=== PATIENT | female | born 2000 | race Caucasian/White ===

== ENCOUNTER 2025-04-23 23:50 | Inpatient (IN) | payer BC, SELFPAY ==
[2025-04-23 15:17] VITALS: BMI 21.9
[2025-04-23 15:19] VITALS: BP 151/95
[2025-04-23 15:37] LABS: Hematocrit 39.7 % (37.0-47.0); Hemoglobin 13.7 g/dL (12.0-16.0); Mean Corp Hgb Conc. 34.5 g/dL (33.0-37.0); Mean Corpuscular Volume 86.3 fL (81.0-99.0); Nucleated Red Blood Cells % 0 %; Platelet Count 226 10^3/uL (130-400); Red Cell Dist. Width 11.9 % (11.5-14.5)
[2025-04-23 15:58] LABS: HCG, Serum Qualitative Screen Negative
[2025-04-23 16:00] LABS: ALT (SGPT) 16 U/L (0-35); AST (SGOT) 22 U/L (14-36); Albumin 4.7 g/dl (3.5-5.0); Alkaline Phosphatase 63 U/L (38-126); Blood Urea Nitrogen 10 mg/dl (7-17); Calcium 10.3 mg/dl (8.4-10.2); Carbon Dioxide 24 mmol/L (22-30); Chloride 100 mmol/L (98-107); Glucose 101 mg/dl (70-99); Lipase 122 U/L (23-300); Potassium 4.2 mmol/L (3.5-5.1); Sodium 130 mmol/L (135-145); Total Protein 8.0 g/dl (6.3-8.2); eGFR > 60.00
[2025-04-23] MEDS: OMNIPAQUE 50 ML PO (19:00)
[2025-04-23] MEDS: NSS 1000 IV (19:00)
--- NOTE | 2025-04-23 19:07 | ED.GENMED ---
History of Present Illness
<Sadia Tate PA-C - Last Filed: 04/23/25 23:31>
General
Chief Complaint: Abdominal Symptoms
Source: patient
Exam Limitations: none
Time Seen by Provider: 04/23/25 18:45
History of Present Illness
History of Present Illness:
24yoF with a history of asthma presenting with her parents for evaluation of abdominal pain. She initially started with a burning pain in her upper abdomen around 8:30 AM this morning. Pain has been constant throughout the day and has now migrated
to the right lower quadrant and is described as shooting. She was seen by her PCP today and was sent to the ED to rule out appendicitis. Patient reports nausea but is otherwise asymptomatic and she denies any vomiting, diarrhea, constipation,
dysuria. Last menstrual period was 1 week ago. No prior abdominal surgeries.
Phy Exam
<Sadia Tate PA-C - Last Filed: 04/23/25 23:31>
General Physical Exam
General Presentation: well appearing and no apparent distress
General Skin: warm and dry
General Habitus: normal
General Mental: alert
ENT Exam
ENT Exam: normocephalic
Pulmonary Exam
Pulmonary Exam: no respiratory distress
Gastrointestinal Exam
Gastrointestinal Exam: soft, non distended and other (+Tenderness in RLQ and suprapubic regions. Abdomen soft, non-distended. )
Neurological Exam
Neurological Exam: alert
[place] Coma Scale
Eye Opening: Spontaneous
Verbal Response: Oriented
Motor Response: Obeys Commands
GCS Total Score: 15
Skin Exam
Skin Exam: normal color and warm/dry
Psychiatric Exam
Psychiatric Exam: normal mood/affect
<Meng Oneal MD - Last Filed: 04/23/25 23:46>
[place] Coma Scale
GCS Total Score: 15
Course
<Sadia Tate PA-C - Last Filed: 04/23/25 23:31>
Orders/Labs/Results
Orders:
Orders
04/23/25 15:21
Straight cath- Treatment ONCE
Test Result ONCE
04/23/25 15:27
Complete Blood Count/With Diff Urgent
Comprehensive Metabolic Panel Urgent
HCG, Serum Qualitative Screen Urgent
Comment: Notify provider if positive test present
Lipase Urgent
04/23/25 19:04
CT Abd/pel W Iv And Oral Contr Urgent
Comment:
Reason For Exam: RLQ pain
0.9% Sodium Chloride 1000 ml [Nss] 1,000 ml IV BOLUS
Iohexol [Omnipaque] See Protocol PO NOW STA
Ketorolac [Toradol] 15 mg IV NOW STA
04/23/25 19:46
Urinalysis Reflex To Culture Urgent
Date Specimen was Collected: 04/23/25
Time Specimen was Collected: 19:14
Urine Microscopic Reflex Cult Urgent
04/23/25 22:18
Pelvis & Transvaginal US [US Pelvis W Transvag Combined] Urgent
Comment:
Reason For Exam: RLQ pain, abnormal CT
04/23/25 22:28
HYDROmorphone [Dilaudid] 0.5 mg IV NOW STA
04/23/25 22:31
Piperacillin/Tazo 3.375 Gram [Zosyn] 3.375 gram in 50 ml IV NOW
Abnormal Lab Results
04/23/25 04/23/25
15:27 19:46
WBC 13.3 H 10^3/uL
(4.8-10.8)
Absolute Neuts (auto) 10.3 H 10^3/uL
(1.4-6.5)
Neutrophils % 77.5 H %
(42.2-75.2)
Lymphocytes % 13.8 L %
(20.5-51.1)
Sodium 130 L mmol/L
(135-145)
Creatinine 0.5 L mg/dL
(0.6-1.0)
Glucose 101 H mg/dl
(70-99)
Calcium 10.3 H mg/dl
(8.4-10.2)
Urine Ketones 2+ A
(Negative)
Ur Occult Blood Reflex 2+ A
(Negative)
Urine RBC 3-6 A /HPF
(0-2)
04/23/25 15:27
04/23/25 15:27
Vital Signs
Initial and Last Documented VS:
Initial Vital Signs
Temp Pulse Resp BP Pulse Ox
36.9 C 97 18 151/95 98
04/23/25 15:19 04/23/25 15:19 04/23/25 15:19 04/23/25 15:19 04/23/25 15:19
Last Documented Vital Signs
Temp Pulse Resp BP Pulse Ox
37.2 C 79 16 134/76 100
04/23/25 19:32 04/23/25 20:00 04/23/25 20:00 04/23/25 19:32 04/23/25 20:00
<Meng Oneal MD - Last Filed: 04/23/25 23:46>
Orders/Labs/Results
Orders:
Orders
04/23/25 15:21
Straight cath- Treatment ONCE
Test Result ONCE
04/23/25 15:27
Complete Blood Count/With Diff Urgent
Comprehensive Metabolic Panel Urgent
HCG, Serum Qualitative Screen Urgent
Comment: Notify provider if positive test present
Lipase Urgent
04/23/25 19:04
CT Abd/pel W Iv And Oral Contr Urgent
Comment:
Reason For Exam: RLQ pain
0.9% Sodium Chloride 1000 ml [Nss] 1,000 ml IV BOLUS
Iohexol [Omnipaque] See Protocol PO NOW STA
Ketorolac [Toradol] 15 mg IV NOW STA
04/23/25 19:46
Urinalysis Reflex To Culture Urgent
Date Specimen was Collected: 04/23/25
Time Specimen was Collected: 19:14
Urine Microscopic Reflex Cult Urgent
04/23/25 22:18
Pelvis & Transvaginal US [US Pelvis W Transvag Combined] Urgent
Comment:
Reason For Exam: RLQ pain, abnormal CT
04/23/25 22:28
HYDROmorphone [Dilaudid] 0.5 mg IV NOW STA
04/23/25 22:31
Piperacillin/Tazo 3.375 Gram [Zosyn] 3.375 gram in 50 ml IV NOW
Abnormal Lab Results
04/23/25 04/23/25
15:27 19:46
WBC 13.3 H 10^3/uL
(4.8-10.8)
Absolute Neuts (auto) 10.3 H 10^3/uL
(1.4-6.5)
Neutrophils % 77.5 H %
(42.2-75.2)
Lymphocytes % 13.8 L %
(20.5-51.1)
Sodium 130 L mmol/L
(135-145)
Creatinine 0.5 L mg/dL
(0.6-1.0)
Glucose 101 H mg/dl
(70-99)
Calcium 10.3 H mg/dl
(8.4-10.2)
Urine Ketones 2+ A
(Negative)
Ur Occult Blood Reflex 2+ A
(Negative)
Urine RBC 3-6 A /HPF
(0-2)
04/23/25 15:27
04/23/25 15:27
Vital Signs
Initial and Last Documented VS:
Initial Vital Signs
Temp Pulse Resp BP Pulse Ox
36.9 C 97 18 151/95 98
04/23/25 15:19 04/23/25 15:19 04/23/25 15:19 04/23/25 15:19 04/23/25 15:19
Last Documented Vital Signs
Temp Pulse Resp BP Pulse Ox
37.2 C 79 16 134/76 100
04/23/25 19:32 04/23/25 20:00 04/23/25 20:00 04/23/25 19:32 04/23/25 20:00
<Sadia Tate PA-C - Last Filed: 04/23/25 23:31>
MDM/Problems Addressed
Differential Diagnosis Includes:
24yoF here with RLQ pain. Started with upper abd pain this AM which has migrated. Sent in by PCP to r/o appendicitis. VSS. She is non-toxic appearing. Focal RLQ tenderness on exam. Differential diagnosis includes but is not limited to: appendicitis,
mesenteric adenitis, ovarian cyst, kidney stone
Initial ED plan: Workup initiated in triage. Leukocytosis noted with a WBC of 13.3. Sodium 130. Renal function normal. HCG negative. Will check UA and CT abdomen. IV Toradol and fluid bolus for symptoms.
<Sadia Tate PA-C - Last Filed: 04/23/25 23:31>
*Pulse Oximetry
SaO2: 98
Oxygen Mode of Delivery: Room air
Patient hypoxic: no
*Critical Care Note
Total Time (30-74mins, 75-104mins- exclusive of procedures): Not Applicable
<Sadia Tate PA-C - Last Filed: 04/23/25 23:31>
Update Note
Update Note:
CT shows distended appendix without significant surrounding inflammatory changes. Clinical correlation recommended for possible developing appendicitis. There is also a mild asymmetric enlargement of the R ovary with small amount of surrounding
stranding which may be related to recently ruptured follicle. Case discussed with Dr. Morejon. Will admit under general surgery service. IV Zosyn ordered as well as pelvic ultrasound for completeness.
ED Attending Note
<Sadia Tate PA-C - Last Filed: 04/23/25 23:31>
-
Portions of this chart may have been created with voice recognition software.� Occasional wrong word or��sound alike� substitutions may have occurred due to the inherent limitations of voice recognition software.
<Meng Oneal MD - Last Filed: 04/23/25 23:46>
ED Attending Note
Patient seen and examined by attending physician: Yes
ED Attending Note:
I have seen and evaluated the patient with a [id number] encounter. I have spoken to the advance practicer provider and involved in the medical history, the physical exam, medical decision making.
Evaluation and management service: agree unless noted differently below.
Results interpretation: agree unless noted differently below.
Focused HPI: 24-year-old female with history as noted presents for evaluation of right lower quadrant abdominal pain. Onset around 8:30 AM. Associated with nausea but no vomiting. No vaginal bleeding or discharge. No urinary symptoms. No
similar symptoms in the past. Last menstrual period was 1-1/2 weeks ago.
Physical exam: Awake and alert not in distress. Vital signs normal on my assessment. Abdomen soft, tender to palpation in the right lower quadrant with no peritoneal signs
Medical Decision Makin-year-old female presents with right lower quadrant abdominal pain. Vitals and exam as above. Lab work was significant for leukocytosis to 13.3. Chemistry unremarkable. Her hCG is negative. Urinalysis is essentially
bland. CT abdomen showed signs concerning for developing acute appendicitis. She also had what looked like an ovarian cyst�will check pelvic ultrasound for completeness. KIA discussed with general surgery will admit to their service. IV
antibiotics.
Discharge Plan
Departure
Patient Disposition: Admit
Date of Disposition: 04/23/25
Time of Disposition: 22:34
Presentation/result/management discussed w/ accepting MD/DO: Dr. Morejon
Discharge Problem:
Acute right lower quadrant pain, Abnormal abdominal CT scan
Prescriptions:
No Action
No Current Medications
0
Referrals:
Dedra Muller DO [Family Provider, Family Practice]
Interventions
Interventions:
*Risk Screen - Suicide Last Done: 04/23/25 15:21
*General Assessment Last Done: 04/23/25 19:00
*Neglect/Abuse Screening Last Done: 04/23/25 15:21
*ED- Fall Risk Assessment Last Done: 04/23/25 19:00
AT-Iwewxx-Xjzoihogtt Assessment Last Done: 04/23/25 19:00
Discharge Date and Time
Print Language: GUINEAN
[2025-04-23] MEDS: TORADOL 15 MG IV (19:21)
[2025-04-23 19:32] VITALS: BP 134/76
[2025-04-23 20:06] LABS: Urine Character Clear (Clear)
[2025-04-23 20:27] LABS: Urine White Cell 0-2 /HPF (0-5)
[2025-04-23] MEDS: ZOSYN 50 IV (22:25)
[2025-04-23] MEDS: DILAUDID 0.5 MG IV (22:40)
[2025-04-24] VITALS (9 sets, daily range): BP systolic 91–129; BP diastolic 51–86; BMI 22.2
--- NOTE | 2025-04-24 00:02 | HP.FOC2 ---
Addendum entered and electronically signed by Deonte Morejon MD 04/24/25 08:56:
Patient seen and examined independently of admitting nurse practitioner.
HPI: 24-year-old female who reports acute onset of abdominal pain starting yesterday at 8 AM which has subsequently localized to the suprapubic and right lower quadrant. Nausea but no vomiting. Anorexia. No fevers chills or sweats. Last bowel
movement 2 to 3 days ago and normal. No similar episodes of pain like this in the past. Her pain is persistent through this a.m.
She denies any significant active or past medical history. No past abdominal surgical history.
AF low-grade tachycardia normal blood pressure
NAD AAO x 3 pleasant and participatory for history taking
ABD: Soft, nondistended, tenderness to palpation suprapubic and localized to the right lower quadrant with voluntary guarding
CT abdomen/pelvis imaging personally reviewed as well as radiologist report. Dilated fluid-filled appendix. No organizing fluid collection. Findings highly suspicious for acute appendicitis.
Assessment: 24-year-old female with acute appendicitis.
Reviewed with patient history, examination and CT imaging consistent with acute appendicitis. Discussed both operative and nonoperative management options and associated risks/benefits of approaches. Patient is in agreement to proceed with
appendectomy.
Laparoscopic appendectomy reviewed in detail with the patient. Discussed operative technique utilizing diagrams or drawings, alternative management options, benefits and potential risks such as but not limited to bleeding, infectious or wound
healing complications, iatrogenic injury to surrounding viscera. Discussed the typical postoperative recovery pending operative findings.
Any of the patient's concerns or questions were fully addressed and informed consent was obtained.
Plan: OR for laparoscopic appendectomy.
Empiric antibiotic coverage with Zosyn.
Nothing by mouth, IV fluid hydration and supportive care awaiting operative room availability.
SCDs for DVT prophylaxis
Original Note:
Focused History & Physical
Chief Complaint
HPI:
Chief Complaint: RLQ abdominal pain
HPI / Indication for Planned Procedure:
24YOF PMH of asthma comes in to ED with c/o RLQ abdominal pain described as shooting. Reports it started in the upper abdomen that migrated to the RLQ throughout the day associated with nausea. Patient denies vomiting, diarrhea, constipation, sob
and chest pain. Received Dilaudid and Toradol in the ED which helped with her pain.
Relevant Past Medical History: Negative
Relevant Social History: Negative
Relevant Family History: Negative
Relevant Past Surgical History: Negative
Review of Systems
Review of Pertinent Systems: All Systems Negative Except for the Following Positives (RLQ abdomen tender to palpation )
Medication
See Medication form for detailed medications: Yes
Medication List (including Herbals & OTC):
Rescue inhaler - Albuterol PRN 04/23/25
Medications Reviewed: Yes
Allergies and Reactions
Patient has Allergies: No
Noted Allergies and Reactions:
Allergy/AdvReac Type Severity Reaction Status Date / Time
No Known Allergies Allergy Unverified 04/23/25 15:20
Pertinent Physical Exam
All Other Systems: Negative
Head/Neck: Normal
Lungs: Normal
Heart: Normal
Abdomen: Normal (flat, non distended, normoactive bowel sound )
Extremities: Normal
Neurological: Normal
Diagnosis / Assessment
CT Abd/pel W Iv And Oral Contr
IMPRESSION:
Distended appendix measuring up to 11.5 cm. No significant adjacent or surrounding inflammatory soft tissue stranding. Clinical correlation advised to assess for the possibility of developing appendicitis. No perforation or abscess.
Mild asymmetric enlargement of the right ovary compared to left, with a small amount of adjacent soft tissue stranding. Possibly related to recently ruptured follicle. If there is significant clinical concern for the possibility of right ovarian
pathology, such as torsion, follow-up ultrasound may be considered.
Plan / Procedure
# Distended appendix/soft tissue stranding adjacent to right ovary
- NPO
- Abx - Zosyn
- Pain control
- IVF
# Hyponatremia
- IVF
- repeat BMP in AM
DVT prophylaxis - SCD
FULL CODE
[2025-04-24] MEDS: NSS 1000 IV ×2 (01:30→15:53)
--- NOTE | 2025-04-24 01:30 | PTCARENOTE ---
Addendum entered by Audrey Shanks RN 04/24/25 04:02:
Pt AOx3, pain addressed, bed in a low position, call light in reach.
Original Note:
Pt a 24y/o F PMH of asthma arrived on 2S from ED at 01:15 with c/o RLQ abdominal pain described as shooting with nausea. Pt is NPO for surgical consult. CT abd/Pelvis - Clinical correlation advised to assess for the possibility of developing
appendicitis. No perforation or abscess. Mild asymmetric enlargement of the right ovary compared to left, with a small amount of adjacent soft tissue stranding. Possibly related to recently ruptured follicle. If there is significant clinical concern
for the possibility of right ovarian pathology, such as torsion, follow-up ultrasound may be considered.
[2025-04-24] MEDS: MORPHINE SULFATE 2 MG IV (02:15)
[2025-04-24] MEDS: ZOFRAN 4 MG IV (02:45)
[2025-04-24] MEDS: ZOSYN 50 IV ×3 (03:10→15:49)
[2025-04-24 06:49] LABS: Hematocrit 33.4 % (37.0-47.0); Hemoglobin 12.1 g/dL (12.0-16.0); Mean Corp Hgb Conc. 36.2 g/dL (33.0-37.0); Mean Corpuscular Volume 85.4 fL (81.0-99.0); Nucleated Red Blood Cells % 0 %; Platelet Count 187 10^3/uL (130-400); Red Cell Dist. Width 11.8 % (11.5-14.5)
[2025-04-24 07:03] LABS: Blood Urea Nitrogen 4 mg/dl (7-17); Calcium 8.7 mg/dl (8.4-10.2); Carbon Dioxide 23 mmol/L (22-30); Chloride 105 mmol/L (98-107); Estimated Creatinine Clearance 100 ml/min; Glucose 94 mg/dl (70-99); Potassium 3.8 mmol/L (3.5-5.1); Sodium 135 mmol/L (135-145); eGFR > 60.00
[2025-04-24] MEDS: TORADOL 10 MG IV ×2 (08:52→15:49)
--- NOTE | 2025-04-24 08:56 | W.SUR.PREOP ---
Pre-Operative Surgical Note
-
I have examined this patient prior to the performance of the scheduled procedure.
The patient's condition is unchanged from the time of the current History and
Physical and the patient is able to undergo the scheduled procedure.
--- NOTE | 2025-04-24 14:10 | W.IMMPOSTOP ---
Addendum entered and electronically signed by Deonte Morejon MD 04/24/25 14:23:
#[id number]
Original Note:
Surgical Immed Post Op Note
-
Primary Surgeon: Deonte Morejon MD
Assisting Surgeon: None
Pre-op Diagnosis: Acute appendicitis
Post-op Diagnosis: Acute appendicitis
Procedure Performed: Laparoscopic appendectomy
Anesthesia Type: GETA +0.25% Marcaine with epi
Specimen / Cultures: Appendix/not
Estimated Blood Loss: 8 mL
Complications: None immediate
Operative Findings: Acutely inflamed appendix predominantly distally. Distal appendix adherent to the right pelvic sidewall and right fallopian tube/ovary with exudative adhesions. Appendix carefully mobilized without disruption. No abscess. No
disruption of appendix during appendectomy. Mesoappendix divided with lap LigaSure. Appendix taken flush with cecum utilizing Endo GLYNN griffin 30 mm stapler.
Plan: Routine postoperative care, okay for discharge home when tolerating p.o. intake and postoperative pain controlled.
Updated patient's mother via phone call postoperatively.
--- NOTE | 2025-04-24 14:42 | CM ---
Initial assessment completed with pt at bedside.
Pt is a 24yr old female admitted with Appendicitis and had removal.
At baseline, pt lives with her parents and is independent and active.
PCP; Dedra Muller
Pharm; [facility]
PLAN; Anticipate to dc to home with no needs identified.
--- NOTE | 2025-04-24 15:19 | PTCARENOTE ---
pt received from PACU nurses. lap sites assessed. NSS 100 via RAC. eyes sore cool cloth on, bed low call teresa in reach. discussed diet, water given. parents not in room yet but aware.
--- NOTE | 2025-04-24 17:27 | PTCARENOTE ---
pt eating and drinking with no n/v or distention. Walking to use bathroom, pain controlled. pt being discharged per order. Nurse reviewed sugammdex post-op control need for 7 days.
== END 2025-04-24 17:24 | disposition home or self-care (01) | DRG 399 ==
LOC: 2 SOUTH 23:50
PROVIDERS: Nurse Practitioner Gerontology; Physician Assistant; Student in an Organized Health Care Education/Training Program; ADMITTING PHYSICIAN Surgery; EMERGENCY PHYSICIAN Emergency Medicine; FAMILY PHYSICIAN Family Medicine
PROC: 0DTJ4ZZ Resection of Appendix, Percutaneous Endoscopic Approach (ICD-10-PCS; 2025-04-24)
DX: K35.80 Unspecified acute appendicitis (principal); J45.909 Unspecified asthma, uncomplicated; N73.6 Female pelvic peritoneal adhesions (postinfective); N83.8 Other noninflammatory disorders of ovary, fallopian tube and broad ligament
CPT/HCPCS: 74177; 76830; 76856; 80048; 80053; 81003; 81015; 83690; 84703; 85025; 88304; 96361; 96365; 96375; 99285; Q9967